=== PATIENT | female | born 1990 | race Hispanic/Latino ===

== ENCOUNTER 2018-11-22 19:55 | Emergency (ER) | payer OTHER ==
[2018-11-22] MEDS ORDERED: ACETAMINOPHEN 325 MG TAB ONE (20:11)
== END 2018-11-22 21:15 | disposition home or self-care (01) ==
LOC: EDH 19:55
DX: S52.591A Other fractures of lower end of right radius, initial encounter for closed fracture (principal); S52.611A Displaced fracture of right ulna styloid process, initial encounter for closed fracture; Z98.890 Other specified postprocedural states; W18.39XA Other fall on same level, initial encounter; Y93.02 Activity, running; Y92.39 Other specified sports and athletic area as the place of occurrence of the external cause; Y99.8 Other external cause status
CPT/HCPCS: 29125; 73110